=== PATIENT | female | born 1965 | race Two or more races ===

== ENCOUNTER 2023-04-20 06:02 | Day surgery (SDC) | payer OTHER ==
[~2023-04-20 06:02] MED LIST: AMLODIPINE BESYL5 MG PO; ZESTORETIC 20-1 EACH PO
[2023-04-20] MEDS ORDERED: IBU600 MG PO (11:31)
== END 2023-04-20 15:35 | disposition home or self-care (01) ==
LOC: CIR.AMB 06:02
PROVIDERS: ATTEND Obstetrics & Gynecology Gynecology
DX: N85.02 Endometrial intraepithelial neoplasia [EIN] (principal); N72 Inflammatory disease of cervix uteri; N95.0 Postmenopausal bleeding; Z20.822 Contact with and (suspected) exposure to COVID-19; I10 Essential (primary) hypertension

== ENCOUNTER 2023-07-17 07:14 | Outpatient (CLI) | payer OTHER ==
[~2023-07-17 07:14] MED LIST changes: +IBU600 MG PO
== END 2023-07-17 14:11 | disposition home or self-care (01) ==
LOC: EKG 07:14
PROVIDERS: ATTEND Internal Medicine
DX: I10 Essential (primary) hypertension (principal)

== ENCOUNTER 2023-07-20 06:58 | Inpatient (IN) | payer OTHER ==
[~2023-07-20] VITALS: Ht 167.6 cm; Wt 81.6 kg
[2023-07-20 16:16] LABS: HEMATOCRIT 40.2 % (36.0-45.00); HEMOGLOBIN 13.5 g/dL (12.0-15.00); MEAN CELL VOLUME 85.2 fL (80.00-100.00); MEAN CORPUSCULAR HEMOGLOBIN 28.5 pg (27.00-32.0); MEAN CORPUSCULAR HGB CONC 33.5 g/dl (32.0-36.0); PLATELET COUNT 264 K/uL (150-450); RED BLOOD COUNT 4.72 M/uL (4.00-6.00); RED CELL DISTRIBUTION WIDTH 14.1 % (11.5-14.5)
[2023-07-21] MEDS ORDERED: IBU800 MG PO (06:50)
[2023-07-21] MEDS ORDERED: NEURONTIN300 MG PO (06:50)
== END 2023-07-21 10:09 | disposition home or self-care (01) | DRG 743 ==
LOC: CIR.AMB 06:58 → SURG 12:45 → EDSTATUS 12:45 → O/R 15:34 → OB/GYN 15:41
PROVIDERS: ADMIT Obstetrics & Gynecology Gynecology; ATTEND Obstetrics & Gynecology Gynecology
PROC: 0UT74ZZ Resection of Bilateral Fallopian Tubes, Percutaneous Endoscopic Approach (ICD-10-PCS; 2023-07-20)
PROC: 0UT24ZZ Resection of Bilateral Ovaries, Percutaneous Endoscopic Approach (ICD-10-PCS; 2023-07-20)
PROC: 0UT94ZZ Resection of Uterus, Percutaneous Endoscopic Approach (ICD-10-PCS; principal; 2023-07-20 07:00)
DX: D25.1 Intramural leiomyoma of uterus (principal); D25.2 Subserosal leiomyoma of uterus; D25.0 Submucous leiomyoma of uterus; N85.01 Benign endometrial hyperplasia; N72 Inflammatory disease of cervix uteri; Z20.822 Contact with and (suspected) exposure to COVID-19